=== PATIENT | male | born 1985 | race Asian ===

== ENCOUNTER → 2017-05-16 | Outpatient (CLI) | payer OTHER | END | disposition home or self-care (01) | LOC: RADMN 15:38 | PROVIDERS: ATTEND Internal Medicine | DX: R76.11 Nonspecific reaction to tuberculin skin test without active tuberculosis (principal) ==

== ENCOUNTER → 2021-05-21 | Outpatient (CLI) | payer OTHER | END | disposition home or self-care (01) | LOC: RADMN 12:51 | PROVIDERS: ATTEND Internal Medicine | DX: R76.11 Nonspecific reaction to tuberculin skin test without active tuberculosis (principal) | CPT/HCPCS: 71045 ==

== ENCOUNTER 2023-08-29 19:04 | Inpatient (IN) | payer OTHER ==
[~2023-08-29] VITALS: Ht 172.7 cm; Wt 148.5 kg
[2023-08-29 21:14] LABS: BASOPHILS % (AUTO) 0.1 % (0.0-2.0); EOSINOPHILS % (AUTO) 0 % (1.0-6.0); HEMATOCRIT 50.4 % (41-53); HEMOGLOBIN 16.1 g/dL (13.5-17.5); LYMPHOCYTES # (AUTO) 0.9 K/uL (1.0-4.8); LYMPHOCYTES % (AUTO) 13.1 % (22.0-44.0); MEAN CORPUSCULAR HGB CONC 32.1 G/dL (31.0-37.0); MEAN CORPUSCULAR VOLUME 84 fL (80-100); MONOCYTES # (AUTO) 0.4 K/uL (0.1-1.0); MONOCYTES % (AUTO) 5.1 % (2.0-9.0); NEUTROPHILS # (AUTO) 5.8 K/uL (1.8-7.7); NEUTROPHILS % (AUTO) 81.7 % (40.0-70.0); PLATELET COUNT (AUTO) 285 K/uL (150-450); RED BLOOD CELL COUNT(AUTO) 5.98 MIL/uL (4.50-5.90); RED CELL DISTRIBUTION WIDTH 17.4 % (11.5-14.5); WHITE BLOOD COUNT (AUTO) 7.1 K/uL (4.5-11.0)
[2023-08-29 21:35] LABS: COVID AG,FIA SOURCE NASAL SWAB
[2023-08-29 21:35] LABS: B-TYPE NATRIURETIC PEPTIDE 1100 pg/mL (0-100)
[2023-08-29 21:37] LABS: LACTIC ACID 3.7 mmol/L (0.4-2.0)
[2023-08-29 21:49] LABS: TROPONIN I-HIGH SENSITIVITY 286 ng/L (<76)
[2023-08-29 21:50] LABS: INR 3.3 (0.9-1.1); PROTHROMBIN TIME 32.1 SEC (9.4-11.6)
[2023-08-29 21:52] LABS: SARS-COV2 (COVID) ANTIGEN,FIA Negative (Negative)
[2023-08-29 21:55] LABS: ALANINE AMINOTRANSFERASE 42 U/L (12-78); ALKALINE PHOSPHATASE 45 U/L (46-116); ANION GAP 7 mmol/L (8-16); ASPARTATE AMINOTRANSFERASE 82 U/L (15-37); BILIRUBIN,TOTAL 4.5 mg/dL (0.1-1.0); CALCIUM, TOTAL 9.6 mg/dL (8.8-10.5); CARBON DIOXIDE 30 mmol/L (22-29); CHLORIDE 100 mmol/L (98-107); CREATINE KINASE, TOTAL ONLY 313 U/L (39-308); CREATININE 3.03 mg/dL (0.60-1.30); GLOMERULAR FILTR. RATE CALC 24 mL/min (>60); GLUCOSE,RANDOM 80 mg/dL (70-110); SODIUM SERUM 136 mmol/L (136-145); TOTAL PROTEIN, SERUM 7.1 g/dL (6.4-8.2); UREA NITROGEN, BLOOD 47 mg/dL (7-18)
[2023-08-29 21:57] LABS: POTASSIUM 6.3 mmol/L (3.5-5.1)
[2023-08-29] MEDS: ALBUTEROL SULFATE 2.5 MG/0.5 ML NEB SOLUTION NEB ONE (22:38)
[2023-08-29 22:42] VITALS: PULSE 109; RESP 21; O2SAT 100
[2023-08-29 22:45] VITALS: PULSE 110; RESP 21; O2SAT 99
[2023-08-29] MEDS ORDERED: SODIUM CHLORIDE 0.9% IV ONE (22:45)
[2023-08-29] MEDS ORDERED: 0.9% SODIUM CHLORIDE 10 ML SYRINGE IVP PRN (22:45)
[2023-08-29] MEDS: CALCIUM GLUCONATE 100 MG/ML 10 ML IVP ONE (22:46)
[2023-08-29] MEDS: INSULIN REGULAR, HUMAN 100 UNITS/ML IVP ONE (22:47)
[2023-08-29] MEDS: FUROSEMIDE 40 MG/4 ML VIAL IVP ONE (22:48)
[2023-08-29] MEDS: SODIUM BICARBONATE [ADULT] 8.4% 50 MEQ/50 ML SYRINGE IVP ONE (22:48)
[2023-08-29] MEDS: SODIUM ZIRCONIUM CYCLOSILICATE 5 GM POWDER PACKET PO ONE (22:49)
[2023-08-29] MEDS: DEXTROSE 50%-WATER 25 GM/50 ML SYRINGE IVP ONE (22:55)
[2023-08-29] MEDS: ONDANSETRON HCL 4 MG/2 ML VIAL IVP ONE (22:55)
[2023-08-29] MEDS ORDERED: ONDANSETRON HCL 4 MG/2 ML VIAL IVP PRN (23:00)
[2023-08-29 23:17] LABS: D-DIMER 2.55 mg/L FEU (0.00-0.50)
[2023-08-29 23:20] LABS: C-REACTIVE PROTEIN QUANT 14.41 mg/dL (0.00-0.30); LACTATE DEHYDROGENASE 445 U/L (85-227)
[2023-08-30] VITALS (7 sets, daily range): BP systolic 127–149; BP diastolic 75–102; PULSE 104–120; RESP 12–25; TEMP 97.9–98.9; O2SAT 92
[2023-08-30] MEDS: CLINDAMYCIN 600 MG/D5% WATER 50 ML IV ONE (00:16)
[2023-08-30 00:19] LABS: APPEARANCE,URINE HAZY (CLEAR); BILIRUBIN,URINE SMALL (NEGATIVE); COLOR,URINE YELLOW (YELLOW); GLUCOSE, URINE (UA) NEGATIVE (NEGATIVE); KETONES,URINE NEGATIVE (NEGATIVE); LEUKOCYTE ESTERASE ,URINE NEGATIVE (NEGATIVE); NITRATE,URINE NEGATIVE (NEGATIVE); OCCULT BLOOD,URINE NEGATIVE (NEGATIVE); PROTEIN,URINE 100-200,SEE CONFIRM mg/dL (NEGATIVE); SPECIFIC GRAVITIY, URINE 1.013 (1.003-1.030)
[2023-08-30] MEDS: CefTRIAXone 1 GM/DEXTROSE 50 ML IV SCH (00:25)
[2023-08-30 00:30] LABS: SULFOSALICYLIC ACID,URINE 1+ (Negative)
[2023-08-30 00:31] LABS: BACTERIA,URINE None Seen /HPF (None Seen); RBC,URINE None Seen /HPF (0-2); SQUAMOUS EPITHELIAL CELL,UR None Seen /LPF (None Seen); WBC,URINE None Seen /HPF (0-5)
[2023-08-30 00:32] LABS: HYALINE CASTS, URINE 0-2 /LPF (None Seen)
[2023-08-30 00:39] LABS: CALCIUM, TOTAL 9.3 mg/dL (8.8-10.5); CREATININE 3.03 mg/dL (0.60-1.30)
[2023-08-30 00:55] LABS: FERRITIN 197 ng/mL (26-388)
[2023-08-30 01:53] LABS: TROPONIN I-HIGH SENSITIVITY 275 ng/L (<76)
[2023-08-30 02:07] LABS: CREATININE,URINE RANDOM 195.5 mg/dL (30.0-125.0)
[2023-08-30] MEDS ORDERED: BUMETANIDE 0.25 MG/ML 4 ML VIAL ONE (02:28)
[2023-08-30] MEDS: BUMETANIDE 0.25 MG/ML 4 ML VIAL IVP ONE (02:41)
[2023-08-30 05:24] LABS: BASOPHILS % (AUTO) 0.2 % (0.0-2.0); EOSINOPHILS % (AUTO) 0 % (1.0-6.0); HEMATOCRIT 50.9 % (41-53); HEMOGLOBIN 16.1 g/dL (13.5-17.5); LYMPHOCYTES # (AUTO) 0.8 K/uL (1.0-4.8); LYMPHOCYTES % (AUTO) 12.7 % (22.0-44.0); MEAN CORPUSCULAR HEMOGLOBIN 27.1 pg (26.0-34.0); MEAN CORPUSCULAR HGB CONC 31.6 G/dL (31.0-37.0); MEAN CORPUSCULAR VOLUME 86 fL (80-100); MONOCYTES # (AUTO) 0.4 K/uL (0.1-1.0); MONOCYTES % (AUTO) 5.8 % (2.0-9.0); NEUTROPHILS # (AUTO) 5.2 K/uL (1.8-7.7); NEUTROPHILS % (AUTO) 81.3 % (40.0-70.0); PLATELET COUNT (AUTO) 301 K/uL (150-450); RED BLOOD CELL COUNT(AUTO) 5.92 MIL/uL (4.50-5.90); RED CELL DISTRIBUTION WIDTH 17.8 % (11.5-14.5); WHITE BLOOD COUNT (AUTO) 6.5 K/uL (4.5-11.0)
[2023-08-30 05:35] LABS: TROPONIN I-HIGH SENSITIVITY 262 ng/L (<76)
[2023-08-30 06:01] LABS: CALCIUM, TOTAL 9.7 mg/dL (8.8-10.5); CREATININE 2.92 mg/dL (0.60-1.30); POTASSIUM 5.2 mmol/L (3.5-5.1)
[2023-08-30] MEDS: FUROSEMIDE 40 MG/4 ML VIAL IVP SCH (10:36)
[2023-08-30 11:52] LABS: INR 2.8 (0.9-1.1); PROTHROMBIN TIME 27.3 SEC (9.4-11.6)
[2023-08-30 11:59] LABS: TROPONIN I-HIGH SENSITIVITY 152 ng/L (<76)
[2023-08-30] MEDS: SODIUM ZIRCONIUM CYCLOSILICATE 5 GM POWDER PACKET PO SCH (12:32)
[2023-08-30] MEDS: PHYTONADIONE 10 MG/ML VIAL PO SCH (14:13)
[2023-08-30] MEDS ORDERED: OxyCODONE HCL/ACETAMINOPHEN 5-325 MG TABLET PO PRN (16:00)
[2023-08-30 20:35] LABS: ABG BASE EXCESS 4.6 mmol/L (-2.0-3.0); ABG CARBOXYHEMOGLOBIN 1.6 % (0.0-1.5); ABG HCO3 24.6 mmol/L (22.0-26.0); ABG METHEMOGLOBIN 0.3 % (0.0-1.5); ABG OXYGEN CONTENT 20.3 mL/dL (15.0-23.0); ABG OXYGEN SATURATION 91.5 % (95.0-98.0); ABG OXYHEMOGLOBIN 89.8 % (94.0-100.0); ABG PH 7.106 (7.350-7.450); ABG TOTAL HEMOGLOBIN 16.1 G/dL (12.0-18.0); PO2, ARTERIAL BG 66.1 mmHg (92.0-100.0); SOURCE, BLOOD GAS ARTERIAL; TEMPERATURE, FAHRENHEIT, BG 98.6 FAHREN (96.0-98.6)
[2023-08-30 20:36] LABS: ABG PCO2 111 mmHg (35-45); ALLEN TEST, BLOOD GAS Positive; O2 DEVICE,BLOOD GAS CANNULA (ROOM AIR); SITE, BLOOD GAS RT RADIAL
[2023-08-30] MEDS: CHLORHEXIDINE GLUCONATE 2% TOWELETTE [2'S/6'S] TP SCH (21:32)
[2023-08-30] MEDS: DEXTROSE 50%-WATER 25 GM/50 ML SYRINGE IVP ONE (22:39)
[2023-08-30] MEDS: FUROSEMIDE 40 MG/4 ML VIAL IVP ONE (22:40)
[2023-08-30] MEDS: SODIUM POLYSTYRENE SULFONATE 15 GM/60 ML SUSPENSION BOTTLE PO ONE (22:40)
[2023-08-30 23:01] LABS: GLUCOMETER DEV NAME(LOC) ICUN.5; GLUCOSE,POINT OF CARE 163 MG/DL (70-110)
[2023-08-30] MEDS: INSULIN REGULAR, HUMAN 100 UNITS/ML SQ ONE (23:04)
[2023-08-30 23:06] LABS: C.DIFF GDH ANTIGEN, Stool Negative (Negative); C.DIFF TOXINS A&B, Stool Negative (Negative)
[2023-08-31] VITALS (14 sets, daily range): BP systolic 107–149; BP diastolic 65–95; PULSE 89–106; RESP 11–26; TEMP 98.4–100; O2SAT 92–97
[2023-08-31 00:03] LABS: ALCOHOL, URINE DRUG SCREEN NEGATIVE (NEGATIVE); AMPHET/METH SCREEN,URINE NEGATIVE (NEGATIVE); BARBITURATE SCREEN, URINE NEGATIVE (NEGATIVE); BENZODIAZEPINES SCREEN,URINE NEGATIVE (NEGATIVE); CANNABINOID SCREEN,URINE NEGATIVE (NEGATIVE); COCAINE SCREEN,URINE NEGATIVE (NEGATIVE); METHADONE SCREEN, URINE NEGATIVE (NEGATIVE); OPIATE SCREEN,URINE NEGATIVE (NEGATIVE); PHENCYCLIDINE SCREEN,URINE NEGATIVE (NEGATIVE)
[2023-08-31] MEDS ORDERED: SODIUM CHLORIDE 0.9% 250 ML IV ONE (00:56)
[2023-08-31 05:08] LABS: HIV 1-2 SCREEN 4TH GEN W/RFLX Non Reactive (Non Reactive)
[2023-08-31 05:39] LABS: BASOPHILS % (AUTO) 0.2 % (0.0-2.0); EOSINOPHILS % (AUTO) 0.1 % (1.0-6.0); HEMATOCRIT 45.4 % (41-53); HEMOGLOBIN 14.2 g/dL (13.5-17.5); LYMPHOCYTES # (AUTO) 0.7 K/uL (1.0-4.8); MEAN CORPUSCULAR HEMOGLOBIN 26.8 pg (26.0-34.0); MEAN CORPUSCULAR HGB CONC 31.4 G/dL (31.0-37.0); MEAN CORPUSCULAR VOLUME 86 fL (80-100); MONOCYTES # (AUTO) 0.8 K/uL (0.1-1.0); MONOCYTES % (AUTO) 10.5 % (2.0-9.0); NEUTROPHILS % (AUTO) 80.2 % (40.0-70.0); PLATELET COUNT (AUTO) 229 K/uL (150-450); RED CELL DISTRIBUTION WIDTH 17.7 % (11.5-14.5); WHITE BLOOD COUNT (AUTO) 7.5 K/uL (4.5-11.0)
[2023-08-31 06:00] LABS: ALANINE AMINOTRANSFERASE 32 U/L (12-78); ALBUMIN 2.7 g/dL (3.4-5.0); ALKALINE PHOSPHATASE 49 U/L (46-116); ANION GAP 7 mmol/L (8-16); ASPARTATE AMINOTRANSFERASE 39 U/L (15-37); BILIRUBIN,TOTAL 5.1 mg/dL (0.1-1.0); CARBON DIOXIDE 31 mmol/L (22-29); CHLORIDE 100 mmol/L (98-107); CREATININE 3.08 mg/dL (0.60-1.30); GLOMERULAR FILTR. RATE CALC 23 mL/min (>60); GLUCOSE,RANDOM 151 mg/dL (70-110); PHOSPHORUS 5.7 mg/dL (2.5-4.9); POTASSIUM 5.2 mmol/L (3.5-5.1); SODIUM SERUM 138 mmol/L (136-145); TOTAL PROTEIN, SERUM 6.9 g/dL (6.4-8.2); UREA NITROGEN, BLOOD 54 mg/dL (7-18)
[2023-08-31 06:06] LABS: LACTIC ACID 1.5 mmol/L (0.4-2.0)
[2023-08-31 06:09] LABS: TROPONIN I-HIGH SENSITIVITY 108 ng/L (<76)
[2023-08-31 06:36] LABS: HEMOGLOBIN A1C 6.5 % (3.8-5.6)
[2023-08-31 07:07] LABS: COMPLEMENT C3 86 mg/dL (82-167); COMPLEMENT C4 22 mg/dL (12-38)
[2023-08-31 08:07] LABS: HEPATITIS A ANTIBODY IGM Negative (Negative); HEPATITIS B CORE IGM Negative (Negative); HEPATITIS C AB (EIA) Non Reactive (Non Reactive)
[2023-08-31 08:10] LABS: ABG TOTAL HEMOGLOBIN 15.4 G/dL (12.0-18.0); SOURCE, BLOOD GAS ARTERIAL; TEMPERATURE, FAHRENHEIT, BG 98.4 FAHREN (96.0-98.6)
[2023-08-31 08:12] LABS: ABG BASE EXCESS 4.3 mmol/L (-2.0-3.0); ABG CARBOXYHEMOGLOBIN 2.1 % (0.0-1.5); ABG HCO3 26.2 mmol/L (22.0-26.0); ABG METHEMOGLOBIN 0.5 % (0.0-1.5); ABG OXYGEN SATURATION 94.7 % (95.0-98.0); ABG OXYHEMOGLOBIN 92.2 % (94.0-100.0); PO2, ARTERIAL BG 69.7 mmHg (92.0-100.0)
[2023-08-31 08:17] LABS: ABG PCO2 68 mmHg (35-45); ABG PH 7.277 (7.350-7.450); SITE, BLOOD GAS LFT RADIAL
[2023-08-31 08:18] LABS: ABG A-A DIFF O2 137.4 mmHg (10-20.0); ALLEN TEST, BLOOD GAS Positive; O2 DEVICE,BLOOD GAS BIPAP (ROOM AIR); VENT MODE, BG NIPPV (ROOM AIR)
[2023-08-31 08:19] LABS: INSPIRATORY TIME, BG 0.9 SEC; SPONTANEOUS VT, BG 1029 ml
[2023-08-31 13:33] LABS: ABG CARBOXYHEMOGLOBIN 1.5 % (0.0-1.5); ABG HCO3 30.2 mmol/L (22.0-26.0); ABG METHEMOGLOBIN 0.3 % (0.0-1.5); ABG OXYGEN CONTENT 16.7 mL/dL (15.0-23.0); ABG OXYHEMOGLOBIN 79.3 % (94.0-100.0); ABG PH 7.367 (7.350-7.450); SOURCE, BLOOD GAS ARTERIAL; TEMPERATURE, FAHRENHEIT, BG 98.9 FAHREN (96.0-98.6)
[2023-08-31 13:54] LABS: ABG PCO2 61 mmHg (35-45); ALLEN TEST, BLOOD GAS Positive; O2 DEVICE,BLOOD GAS BIPAP (ROOM AIR); SITE, BLOOD GAS LFT RADIAL
[2023-08-31 13:55] LABS: SPONTANEOUS VT, BG 573 ml
[2023-08-31] MEDS: FUROSEMIDE 40 MG/4 ML VIAL IVP SCH (15:43)
[2023-08-31] MEDS: METOLAZONE 2.5 MG TABLET PO ONE (15:43)
[2023-08-31] MEDS: DOXYCYCLINE HYCLATE 100 MG in DEXTROSE 5%-WATER 100 ML IV SCH (17:11)
[2023-09-01] VITALS (14 sets, daily range): BP systolic 97–148; BP diastolic 39–97; PULSE 89–103; RESP 12–28; TEMP 99–99.9; O2SAT 93–98
[2023-09-01 05:41] LABS: ALBUMIN 2.2 g/dL (3.4-5.0); BILIRUBIN,TOTAL 4.9 mg/dL (0.1-1.0); CALCIUM, TOTAL 8.6 mg/dL (8.8-10.5); CREATININE 2.8 mg/dL (0.60-1.30); POTASSIUM 3.6 mmol/L (3.5-5.1); TOTAL PROTEIN, SERUM 6.3 g/dL (6.4-8.2)
[2023-09-01] MEDS: METOLAZONE 5 MG TABLET PO ONE (10:56)
[2023-09-01 11:11] LABS: PO2, ARTERIAL BG 40.8 mmHg (92.0-100.0)
[2023-09-01 11:14] LABS: ABG OXYGEN SATURATION 80.8 % (95.0-98.0)
[2023-09-02] VITALS (9 sets, daily range): BP systolic 126–143; BP diastolic 63–102; PULSE 86–105; RESP 7–25; TEMP 98.5–100.1; O2SAT 94–97
[2023-09-02 05:35] LABS: BASOPHILS % (AUTO) 0.4 % (0.0-2.0); EOSINOPHILS % (AUTO) 2.3 % (1.0-6.0); HEMATOCRIT 45.7 % (41-53); HEMOGLOBIN 14.6 g/dL (13.5-17.5); LYMPHOCYTES # (AUTO) 0.8 K/uL (1.0-4.8); LYMPHOCYTES % (AUTO) 11.4 % (22.0-44.0); MEAN CORPUSCULAR HEMOGLOBIN 26.7 pg (26.0-34.0); MEAN CORPUSCULAR VOLUME 83 fL (80-100); MONOCYTES % (AUTO) 14.1 % (2.0-9.0); NEUTROPHILS # (AUTO) 5.2 K/uL (1.8-7.7); NEUTROPHILS % (AUTO) 71.8 % (40.0-70.0); PLATELET COUNT (AUTO) 181 K/uL (150-450); RED BLOOD CELL COUNT(AUTO) 5.49 MIL/uL (4.50-5.90); RED CELL DISTRIBUTION WIDTH 17.1 % (11.5-14.5); WHITE BLOOD COUNT (AUTO) 7.2 K/uL (4.5-11.0)
[2023-09-02 05:53] LABS: INR 1.5 (0.9-1.1); PROTHROMBIN TIME 14.9 SEC (9.4-11.6)
[2023-09-02 05:59] LABS: ALBUMIN 2.2 g/dL (3.4-5.0); BILIRUBIN,TOTAL 4.9 mg/dL (0.1-1.0); CREATININE 2.19 mg/dL (0.60-1.30); TOTAL PROTEIN, SERUM 6.6 g/dL (6.4-8.2)
[2023-09-02 06:03] LABS: POTASSIUM 2.9 mmol/L (3.5-5.1)
[2023-09-02] MEDS: POTASSIUM CHLORIDE 20 MEQ ER TABLET PO ONE ×2 (08:12→20:07)
[2023-09-02 11:57] LABS: POTASSIUM 3.3 mmol/L (3.5-5.1)
[2023-09-02 13:00] LABS: BILIRUBIN,DIRECT 3.9 mg/dL (0.00-0.20); BILIRUBIN,TOTAL 4.9 mg/dL (0.1-1.0)
[2023-09-02 13:13] LABS: % IRON SATURATION 15.8 % (30-44)
[2023-09-02] MEDS: POTASSIUM CHLORIDE 10 MEQ ER TABLET PO ONE (13:22)
[2023-09-02 18:09] LABS: CALCIUM, TOTAL 8.9 mg/dL (8.8-10.5); CREATININE 1.91 mg/dL (0.60-1.30); MAGNESIUM 1.6 mg/dL (1.80-2.40); PHOSPHORUS 3.1 mg/dL (2.5-4.9); POTASSIUM 3.2 mmol/L (3.5-5.1)
[2023-09-02 21:06] LABS: DRVVT CONFIRMATION-LUPUS 1.1 ratio (0.8-1.2); DRVVT-LUPUS ANTICOAGULANT 61.7 sec (0.0-47.0); PT-LUPUS ANTICOAGULANT 28.5 sec (9.1-12.0); PTT 36.1 sec (22.9-30.2)
[2023-09-03] VITALS (10 sets, daily range): BP systolic 123–149; BP diastolic 86–108; PULSE 88–104; RESP 12–28; TEMP 99.2–100.1; O2SAT 95–98
[2023-09-03 05:14] LABS: HEMATOCRIT 46.4 % (41-53)
[2023-09-03 05:19] LABS: HEMOGLOBIN 14.9 g/dL (13.5-17.5); MEAN CORPUSCULAR HEMOGLOBIN 26.8 pg (26.0-34.0); MEAN CORPUSCULAR HGB CONC 32.2 G/dL (31.0-37.0); MEAN CORPUSCULAR VOLUME 83 fL (80-100); PLATELET COUNT (AUTO) 175 K/uL (150-450); RED BLOOD CELL COUNT(AUTO) 5.57 MIL/uL (4.50-5.90); RED CELL DISTRIBUTION WIDTH 16.6 % (11.5-14.5); WHITE BLOOD COUNT (AUTO) 6.3 K/uL (4.5-11.0)
[2023-09-03 05:24] LABS: CALCIUM, TOTAL 9.2 mg/dL (8.8-10.5); CREATININE 1.58 mg/dL (0.60-1.30); POTASSIUM 3.2 mmol/L (3.5-5.1)
[2023-09-03 07:17] LABS: BAND NEUTROPHILS % (MANUAL) 7 % (0-5); LYMPHOCYTES % (MANUAL) 29 % (22-44); MONOCYTES % (MANUAL) 3 % (2-9); SEGMENTED NEUTROPHILS % 61 % (40-70); TOTAL CELLS COUNTED 100
[2023-09-03 07:18] LABS: RBC MORPHOLOGY COMMENT NORMAL RBC MORPH
[2023-09-03] MEDS: POTASSIUM CHL 10 MEQ/WATER 50 ML IV SCH (08:00)
[2023-09-03] MEDS: MAGNESIUM SULFATE 1 GM in DEXTROSE 5%-WATER 50 ML IV ONE (08:28)
[2023-09-03] MEDS: POTASSIUM CHLORIDE 10% 40 MEQ/30 ML LIQUID UDCUP PO SCH (12:13)
[2023-09-03] MEDS: DAPTOMYCIN 500 MG in SODIUM CHLORIDE 0.9% 50 ML IV SCH (12:13)
[2023-09-03 13:07] LABS: HAPTOGLOBIN 171 mg/dL (17-317)
[2023-09-03] MEDS: ACETAMINOPHEN 325 MG TABLET PO PRN (16:12)
[2023-09-03 18:55] LABS: MAGNESIUM 1.8 mg/dL (1.80-2.40); POTASSIUM 3.8 mmol/L (3.5-5.1)
[2023-09-04] VITALS (9 sets, daily range): BP systolic 123–149; BP diastolic 85–111; PULSE 88–109; RESP 13–28; TEMP 98.2–99.7; O2SAT 95–99
[2023-09-04] MEDS ORDERED: SODIUM CHLORIDE 0.9% 250 ML IV ONE (00:42)
[2023-09-04 05:47] LABS: HEMATOCRIT 48.1 % (41-53); HEMOGLOBIN 15.3 g/dL (13.5-17.5); MEAN CORPUSCULAR HEMOGLOBIN 26.6 pg (26.0-34.0); MEAN CORPUSCULAR HGB CONC 31.9 G/dL (31.0-37.0); MEAN CORPUSCULAR VOLUME 83 fL (80-100); PLATELET COUNT (AUTO) 152 K/uL (150-450); RED BLOOD CELL COUNT(AUTO) 5.78 MIL/uL (4.50-5.90)
[2023-09-04 06:05] LABS: ALBUMIN 2.2 g/dL (3.4-5.0); BILIRUBIN,TOTAL 4.1 mg/dL (0.1-1.0); CALCIUM, TOTAL 8.9 mg/dL (8.8-10.5); CREATININE 1.35 mg/dL (0.60-1.30); MAGNESIUM 1.8 mg/dL (1.80-2.40); POTASSIUM 3.5 mmol/L (3.5-5.1); TOTAL PROTEIN, SERUM 6.9 g/dL (6.4-8.2)
[2023-09-04 08:34] LABS: BAND NEUTROPHILS % (MANUAL) 1 % (0-5); LYMPHOCYTES % (MANUAL) 37 % (22-44); MONOCYTES % (MANUAL) 2 % (2-9); RBC MORPHOLOGY COMMENT NORMAL RBC MORPH; SEGMENTED NEUTROPHILS % 60 % (40-70); TOTAL CELLS COUNTED 100
[2023-09-04] MEDS: ACYCLOVIR 200 MG CAPSULE PO SCH (16:14)
[2023-09-05] VITALS (7 sets, daily range): BP systolic 114–161; BP diastolic 81–107; PULSE 85–103; RESP 20–27; TEMP 98.2–99.6; O2SAT 95–98
[2023-09-05 06:00] LABS: BASOPHILS % (AUTO) 0.6 % (0.0-2.0); EOSINOPHILS % (AUTO) 6.8 % (1.0-6.0); HEMATOCRIT 47.3 % (41-53); HEMOGLOBIN 15.1 g/dL (13.5-17.5); LYMPHOCYTES # (AUTO) 1.1 K/uL (1.0-4.8); LYMPHOCYTES % (AUTO) 21.3 % (22.0-44.0); MEAN CORPUSCULAR HEMOGLOBIN 26.9 pg (26.0-34.0); MEAN CORPUSCULAR VOLUME 84 fL (80-100); MONOCYTES # (AUTO) 0.9 K/uL (0.1-1.0); MONOCYTES % (AUTO) 16.8 % (2.0-9.0); NEUTROPHILS # (AUTO) 2.9 K/uL (1.8-7.7); NEUTROPHILS % (AUTO) 54.5 % (40.0-70.0); PLATELET COUNT (AUTO) 163 K/uL (150-450); RED BLOOD CELL COUNT(AUTO) 5.62 MIL/uL (4.50-5.90); RED CELL DISTRIBUTION WIDTH 16.9 % (11.5-14.5); WHITE BLOOD COUNT (AUTO) 5.4 K/uL (4.5-11.0)
[2023-09-05 06:15] LABS: ALANINE AMINOTRANSFERASE 20 U/L (12-78); ALBUMIN 2.1 g/dL (3.4-5.0); ALKALINE PHOSPHATASE 57 U/L (46-116); ANION GAP 1 mmol/L (8-16); ASPARTATE AMINOTRANSFERASE 26 U/L (15-37); BILIRUBIN,TOTAL 2.8 mg/dL (0.1-1.0); CALCIUM, TOTAL 8.9 mg/dL (8.8-10.5); CHLORIDE 97 mmol/L (98-107); GLOMERULAR FILTR. RATE CALC > 60 mL/min (>60); GLUCOSE,RANDOM 108 mg/dL (70-110); POTASSIUM 3.4 mmol/L (3.5-5.1); SODIUM SERUM 139 mmol/L (136-145); TOTAL PROTEIN, SERUM 6.9 g/dL (6.4-8.2); UREA NITROGEN, BLOOD 33 mg/dL (7-18)
[2023-09-05 06:22] LABS: CARBON DIOXIDE 41 mmol/L (22-29)
[2023-09-05 14:06] LABS: HEPATITIS A ANTIBODY IGM Negative (Negative); HEPATITIS B CORE IGM Negative (Negative); HEPATITIS C AB (EIA) Non Reactive (Non Reactive)
[2023-09-05 17:06] LABS: LEGIONELLA PNEUMO AG URINE Negative (Negative)
[2023-09-05 18:06] LABS: S PNEUMO SOURCE Urine; STREP PNEUMONIAE AG URINE Negative (Negative)
[2023-09-05] MEDS: LACTULOSE 20 GM/30 ML SOLUTION UDCUP PO PRN (20:51)
[2023-09-05 22:21] LABS: GLUCOMETER DEV NAME(LOC) ICU.S6; GLUCOSE,POINT OF CARE 172 MG/DL (70-110)
[2023-09-05] MEDS ORDERED: DEXTROSE 50%-WATER 25 GM/50 ML SYRINGE IVP PRN (22:45)
[2023-09-05] MEDS: INSULIN LISPRO 100 UNITS/ML SQ PRN (22:53)
[2023-09-06] VITALS (8 sets, daily range): BP systolic 124–152; BP diastolic 97–113; PULSE 91–109; RESP 19–24; TEMP 97.6–98.3; O2SAT 95–99
[2023-09-06] MEDS ORDERED: SODIUM CHLORIDE 0.9% 500 ML IV ONE (00:57)
[2023-09-06 06:18] LABS: ALANINE AMINOTRANSFERASE 22 U/L (12-78); ALBUMIN 2.1 g/dL (3.4-5.0); ALKALINE PHOSPHATASE 60 U/L (46-116); ANION GAP 2 mmol/L (8-16); ASPARTATE AMINOTRANSFERASE 30 U/L (15-37); BILIRUBIN,TOTAL 2.6 mg/dL (0.1-1.0); CALCIUM, TOTAL 9.1 mg/dL (8.8-10.5); CHLORIDE 96 mmol/L (98-107); CREATININE 1.05 mg/dL (0.60-1.30); GLOMERULAR FILTR. RATE CALC > 60 mL/min (>60); GLUCOSE,RANDOM 102 mg/dL (70-110); SODIUM SERUM 139 mmol/L (136-145); TOTAL PROTEIN, SERUM 6.9 g/dL (6.4-8.2); UREA NITROGEN, BLOOD 28 mg/dL (7-18)
[2023-09-06 07:06] LABS: CARBON DIOXIDE 41 mmol/L (22-29)
[2023-09-06] MEDS: POTASSIUM CHLORIDE 10% 40 MEQ/30 ML LIQUID UDCUP PO ONE (11:14)
[2023-09-06] MEDS ORDERED: HydrALAZINE HCL 20 MG/ML VIAL IVP PRN (18:15)
[2023-09-06] MEDS: AmLODIPine BESYLATE 10 MG TABLET PO ONE (18:45)
[2023-09-07] VITALS (9 sets, daily range): BP systolic 128–141; BP diastolic 82–100; PULSE 65–114; RESP 18–29; TEMP 96.5–98.1; O2SAT 89–98
[2023-09-07 00:13] LABS: GLUCOMETER DEV NAME(LOC) 5S.2C; GLUCOSE,POINT OF CARE 99 MG/DL (70-110)
[2023-09-07 00:13] LABS: GLUCOMETER DEV NAME(LOC) 5S.2C; GLUCOSE,POINT OF CARE 107 MG/DL (70-110)
[2023-09-07 07:32] LABS: ALANINE AMINOTRANSFERASE 23 U/L (12-78); ALBUMIN 2.4 g/dL (3.4-5.0); ALKALINE PHOSPHATASE 65 U/L (46-116); ANION GAP 4 mmol/L (8-16); ASPARTATE AMINOTRANSFERASE 29 U/L (15-37); BILIRUBIN,TOTAL 2.7 mg/dL (0.1-1.0); CARBON DIOXIDE 40 mmol/L (22-29); CHLORIDE 95 mmol/L (98-107); CREATININE 0.97 mg/dL (0.60-1.30); GLOMERULAR FILTR. RATE CALC > 60 mL/min (>60); GLUCOSE,RANDOM 97 mg/dL (70-110); POTASSIUM 3.3 mmol/L (3.5-5.1); SODIUM SERUM 139 mmol/L (136-145); TOTAL PROTEIN, SERUM 7.4 g/dL (6.4-8.2); UREA NITROGEN, BLOOD 24 mg/dL (7-18)
[2023-09-07] MEDS: AmLODIPine BESYLATE 10 MG TABLET PO SCH (08:28)
[2023-09-07] MEDS ORDERED: SODIUM CHLORIDE 0.9% 250 ML IV ONE (11:39)
[2023-09-07 12:16] LABS: GLUCOMETER DEV NAME(LOC) 5N.2C; GLUCOSE,POINT OF CARE 101 MG/DL (70-110)
[2023-09-07 12:16] LABS: GLUCOMETER DEV NAME(LOC) 5N.2C; GLUCOSE,POINT OF CARE 123 MG/DL (70-110)
[2023-09-07] MEDS: POTASSIUM CHLORIDE 20 MEQ ER TABLET PO ONE (13:17)
[2023-09-07 17:40] LABS: GLUCOMETER DEV NAME(LOC) 5S.2C; GLUCOSE,POINT OF CARE 123 MG/DL (70-110)
[2023-09-07] MEDS: DOXYCYCLINE HYCLATE 100 MG TABLET PO SCH (21:14)
[2023-09-07] MEDS: CEFUROXIME AXETIL 250 MG TABLET PO SCH (21:14)
[2023-09-08] VITALS (9 sets, daily range): BP systolic 122–148; BP diastolic 85–113; PULSE 92–113; RESP 18–25; TEMP 98–99.1; O2SAT 98–99
[2023-09-08 00:36] LABS: GLUCOMETER DEV NAME(LOC) 5N.2C; GLUCOSE,POINT OF CARE 135 MG/DL (70-110)
[2023-09-08 05:42] LABS: POTASSIUM 3.1 mmol/L (3.5-5.1)
[2023-09-08 08:16] LABS: GLUCOMETER DEV NAME(LOC) 5S.2C; GLUCOSE,POINT OF CARE 94 MG/DL (70-110)
[2023-09-08] MEDS ORDERED: POTASSIUM CHLORIDE 20 MEQ ER TABLET ONE (10:02)
[2023-09-08] MEDS: POTASSIUM CHLORIDE 20 MEQ ER TABLET PO ONE (10:07)
[2023-09-08 11:00] LABS: ANION GAP 5 mmol/L (8-16); CARBON DIOXIDE 38 mmol/L (22-29); CHLORIDE 96 mmol/L (98-107); CREATININE 0.94 mg/dL (0.60-1.30); GLOMERULAR FILTR. RATE CALC > 60 mL/min (>60); GLUCOSE,RANDOM 88 mg/dL (70-110); SODIUM SERUM 139 mmol/L (136-145); UREA NITROGEN, BLOOD 20 mg/dL (7-18)
[2023-09-08 11:57] LABS: GLUCOMETER DEV NAME(LOC) 5N.1C; GLUCOSE,POINT OF CARE 146 MG/DL (70-110)
[2023-09-08 11:57] LABS: GLUCOMETER DEV NAME(LOC) 5N.1C; GLUCOSE,POINT OF CARE 131 MG/DL (70-110)
[2023-09-08 11:58] LABS: GLUCOMETER DEV NAME(LOC) 5N.1C; GLUCOSE,POINT OF CARE 104 MG/DL (70-110)
[2023-09-08 18:06] LABS: C. PNEUMONAIE IGG TITER <1:100 (< 1:100); C. PNEUMONIAE IGM TITER <1:10 (< 1:10); C. PSITTACI IGM TITER <1:10 (< 1:10); C. TRACHOMATIS IGG TITER <1:100 (< 1:100); C. TRACHOMATIS IGM TITER <1:10 (< 1:10)
[2023-09-09] VITALS (9 sets, daily range): BP systolic 123–139; BP diastolic 86–98; PULSE 91–102; RESP 18–24; TEMP 96.9–98.3; O2SAT 93–99
[2023-09-09 00:56] LABS: GLUCOMETER DEV NAME(LOC) 5N.2C; GLUCOSE,POINT OF CARE 129 MG/DL (70-110)
[2023-09-09 00:56] LABS: GLUCOMETER DEV NAME(LOC) 5N.2C; GLUCOSE,POINT OF CARE 143 MG/DL (70-110)
[2023-09-09 06:21] LABS: GLUCOMETER DEV NAME(LOC) 5N.2C; GLUCOSE,POINT OF CARE 97 MG/DL (70-110)
[2023-09-09 06:50] LABS: BASOPHILS % (AUTO) 0.8 % (0.0-2.0); EOSINOPHILS % (AUTO) 3.1 % (1.0-6.0); HEMATOCRIT 42.3 % (41-53); HEMOGLOBIN 13.5 g/dL (13.5-17.5); MEAN CORPUSCULAR HEMOGLOBIN 26.6 pg (26.0-34.0); MEAN CORPUSCULAR HGB CONC 31.8 G/dL (31.0-37.0); MEAN CORPUSCULAR VOLUME 84 fL (80-100); MONOCYTES # (AUTO) 0.7 K/uL (0.1-1.0); MONOCYTES % (AUTO) 9.9 % (2.0-9.0); NEUTROPHILS # (AUTO) 4.9 K/uL (1.8-7.7); NEUTROPHILS % (AUTO) 71.2 % (40.0-70.0); PLATELET COUNT (AUTO) 234 K/uL (150-450); RED BLOOD CELL COUNT(AUTO) 5.07 MIL/uL (4.50-5.90); RED CELL DISTRIBUTION WIDTH 17.3 % (11.5-14.5); WHITE BLOOD COUNT (AUTO) 6.9 K/uL (4.5-11.0)
[2023-09-09 07:03] LABS: ANION GAP 3 mmol/L (8-16); CALCIUM, TOTAL 9.2 mg/dL (8.8-10.5); CARBON DIOXIDE 37 mmol/L (22-29); CHLORIDE 98 mmol/L (98-107); CREATININE 0.94 mg/dL (0.60-1.30); GLOMERULAR FILTR. RATE CALC > 60 mL/min (>60); GLUCOSE,RANDOM 90 mg/dL (70-110); POTASSIUM 3.2 mmol/L (3.5-5.1); SODIUM SERUM 138 mmol/L (136-145); UREA NITROGEN, BLOOD 19 mg/dL (7-18)
[2023-09-09] MEDS: SPIRONOLACTONE 25 MG TABLET PO SCH (08:57)
[2023-09-09] MEDS: FUROSEMIDE 40 MG TABLET PO SCH (08:57)
[2023-09-09 12:10] LABS: GLUCOMETER DEV NAME(LOC) 5S.2C; GLUCOSE,POINT OF CARE 111 MG/DL (70-110)
[2023-09-09] MEDS: POTASSIUM CHLORIDE 20 MEQ ER TABLET PO ONE ×2 (16:39→20:23)
[2023-09-09 18:16] LABS: GLUCOMETER DEV NAME(LOC) 5S.2C; GLUCOSE,POINT OF CARE 106 MG/DL (70-110)
[2023-09-09] MEDS: MAGNESIUM SULFATE 2 GM/WATER 50 ML IV ONE (20:24)
[2023-09-09 22:31] LABS: GLUCOMETER DEV NAME(LOC) 5S.2C; GLUCOSE,POINT OF CARE 123 MG/DL (70-110)
[2023-09-10 01:55] VITALS: PULSE 92; RESP 19; O2SAT 99
[2023-09-10 04:00] VITALS: BP 118/91; PULSE 93; RESP 20; TEMP 97.6
[2023-09-10 04:27] VITALS: PULSE 91; RESP 25; O2SAT 98
[2023-09-10 07:57] LABS: GLUCOMETER DEV NAME(LOC) 5N.1C; GLUCOSE,POINT OF CARE 90 MG/DL (70-110)
[2023-09-10 08:01] LABS: ANION GAP 2 mmol/L (8-16); CARBON DIOXIDE 38 mmol/L (22-29); CHLORIDE 99 mmol/L (98-107); CREATININE 0.91 mg/dL (0.60-1.30); GLOMERULAR FILTR. RATE CALC > 60 mL/min (>60); GLUCOSE,RANDOM 90 mg/dL (70-110); POTASSIUM 3.6 mmol/L (3.5-5.1); SODIUM SERUM 139 mmol/L (136-145); UREA NITROGEN, BLOOD 18 mg/dL (7-18)
[2023-09-10 08:21] VITALS: BP 149/96; PULSE 90; RESP 20; TEMP 97.9
[2023-09-10] MEDS: HYDROCODONE/ACETAMINOPHEN 10-325 MG TABLET PO PRN (09:06)
[2023-09-10 11:59] VITALS: BP 144/89; PULSE 92; RESP 18
[2023-09-10] MEDS ORDERED: FURO40 PO (13:01)
[2023-09-10] MEDS ORDERED: SPIR-37 PO (13:01)
[2023-09-10] MEDS ORDERED: ACYC200C24 PO (13:01)
[2023-09-10] MEDS ORDERED: DOXY-354 PO (13:01)
[2023-09-10] MEDS ORDERED: AMLO-258 PO (13:01)
[2023-09-10] MEDS ORDERED: CEFU250T87 PO (13:01)
[2023-09-10 16:17] VITALS: BP 142/85; PULSE 104; RESP 20; TEMP 97.6
[2023-09-10 18:26] LABS: GLUCOMETER DEV NAME(LOC) 5S.1B; GLUCOSE,POINT OF CARE 116 MG/DL (70-110)
== END 2023-09-10 18:45 | disposition home or self-care (01) | DRG 193 ==
LOC: EMS 19:04 → ICU 22:55 → 5S 09-05 23:00 → 5N 09-06 22:16
PROVIDERS: ADMIT Internal Medicine; ATTEND Internal Medicine
PROC: 5A09357 Assistance with Respiratory Ventilation, Less than 24 Consecutive Hours, Continuous Positive Airway Pressure (ICD-10-PCS; principal; 2023-08-30)
PROC: 5A09357 Assistance with Respiratory Ventilation, Less than 24 Consecutive Hours, Continuous Positive Airway Pressure (ICD-10-PCS; 2023-08-31)
PROC: 5A09357 Assistance with Respiratory Ventilation, Less than 24 Consecutive Hours, Continuous Positive Airway Pressure (ICD-10-PCS; 2023-09-01)
PROC: 5A09357 Assistance with Respiratory Ventilation, Less than 24 Consecutive Hours, Continuous Positive Airway Pressure (ICD-10-PCS; 2023-09-02)
PROC: 5A09357 Assistance with Respiratory Ventilation, Less than 24 Consecutive Hours, Continuous Positive Airway Pressure (ICD-10-PCS; 2023-09-03)
PROC: 05HB33Z Insertion of Infusion Device into Right Basilic Vein, Percutaneous Approach (ICD-10-PCS; 2023-09-03)
PROC: B54MZZA Ultrasonography of Right Upper Extremity Veins, Guidance (ICD-10-PCS; 2023-09-03)
PROC: 5A09357 Assistance with Respiratory Ventilation, Less than 24 Consecutive Hours, Continuous Positive Airway Pressure (ICD-10-PCS; 2023-09-04)
PROC: 5A09357 Assistance with Respiratory Ventilation, Less than 24 Consecutive Hours, Continuous Positive Airway Pressure (ICD-10-PCS; 2023-09-05)
PROC: 5A09357 Assistance with Respiratory Ventilation, Less than 24 Consecutive Hours, Continuous Positive Airway Pressure (ICD-10-PCS; 2023-09-06)
PROC: 5A09357 Assistance with Respiratory Ventilation, Less than 24 Consecutive Hours, Continuous Positive Airway Pressure (ICD-10-PCS; 2023-09-07)
PROC: 5A09357 Assistance with Respiratory Ventilation, Less than 24 Consecutive Hours, Continuous Positive Airway Pressure (ICD-10-PCS; 2023-09-08)
PROC: 5A09357 Assistance with Respiratory Ventilation, Less than 24 Consecutive Hours, Continuous Positive Airway Pressure (ICD-10-PCS; 2023-09-09)
PROC: 5A09357 Assistance with Respiratory Ventilation, Less than 24 Consecutive Hours, Continuous Positive Airway Pressure (ICD-10-PCS; 2023-09-10)
DX: J18.9 Pneumonia, unspecified organism (principal); G93.41 Metabolic encephalopathy; I50.23 Acute on chronic systolic (congestive) heart failure; J96.01 Acute respiratory failure with hypoxia; K72.00 Acute and subacute hepatic failure without coma; J96.02 Acute respiratory failure with hypercapnia; N17.9 Acute kidney failure, unspecified; I42.9 Cardiomyopathy, unspecified; E87.20 Acidosis, unspecified; E66.2 Morbid (severe) obesity with alveolar hypoventilation; J98.11 Atelectasis; R18.8 Other ascites; Z68.43 Body mass index [BMI] 50.0-59.9, adult; N18.4 Chronic kidney disease, stage 4 (severe); Z20.822 Contact with and (suspected) exposure to COVID-19; E87.5 Hyperkalemia; E87.6 Hypokalemia
CPT/HCPCS: 36245; 36569; 36600; 71045; 71250; 72192; 74150; 76700; 76770; 76937; 80048; 80053; 80074; 80307; 81001; 81002; 82043; 82140; 82247; 82248; 82390; 82550; 82570; 82728; 82805; 82962; 83010; 83036; 83540; 83550; 83605; 83615; 83735; 83880; 84100; 84132; 84145; 84156; 84300; 84460; 84484; 85025; 85379; 85384; 85598; 85610; 85613; 85651; 85730; 85732; 86038; 86140; 86160; 86225; 86256; 86592; 86631; 86632; 86635; 86707; 86709; 86738; 86850; 86900; 86901; 87040; 87081; 87324; 87350; 87389; 87449; 87517; 87899; 93005; 93306; 93970; 94640; 94660; 97110; 97116; 97162; 97530; 99291; J0610; J0696; J0878; J1815; J1940; J2405; J3430; J3475; J3480; J3490; J7040; J7050; J7060; Q9967; 36415-L1; 36415-TC; 85597-TC; J7613

== ENCOUNTER → 2023-09-14 | Outpatient (CLI) | payer OTHER ==
[~2023-09-14] MED LIST: ACYC200C24 PO; AMLO-258 PO; CEFU250T87 PO; DOXY-354 PO; FURO40 PO; SPIR-37 PO
[2023-09-14 09:29] LABS: EOSINOPHILS % (AUTO) 3.1 % (1.0-6.0); HEMATOCRIT 43.8 % (41-53); HEMOGLOBIN 13.9 g/dL (13.5-17.5); LYMPHOCYTES # (AUTO) 1.3 K/uL (1.0-4.8); LYMPHOCYTES % (AUTO) 20.4 % (22.0-44.0); MEAN CORPUSCULAR HEMOGLOBIN 26.4 pg (26.0-34.0); MEAN CORPUSCULAR HGB CONC 31.7 G/dL (31.0-37.0); MEAN CORPUSCULAR VOLUME 83 fL (80-100); MONOCYTES # (AUTO) 0.8 K/uL (0.1-1.0); MONOCYTES % (AUTO) 12.4 % (2.0-9.0); NEUTROPHILS % (AUTO) 63.1 % (40.0-70.0); PLATELET COUNT (AUTO) 317 K/uL (150-450); RED BLOOD CELL COUNT(AUTO) 5.26 MIL/uL (4.50-5.90); RED CELL DISTRIBUTION WIDTH 17.3 % (11.5-14.5); WHITE BLOOD COUNT (AUTO) 6.3 K/uL (4.5-11.0)
[2023-09-14 09:35] LABS: HEMOGLOBIN A1C 6.4 % (3.8-5.6)
[2023-09-14 09:43] LABS: ALANINE AMINOTRANSFERASE 26 U/L (12-78); ALBUMIN 2.9 g/dL (3.4-5.0); ALKALINE PHOSPHATASE 82 U/L (46-116); ANION GAP 4 mmol/L (8-16); ASPARTATE AMINOTRANSFERASE 23 U/L (15-37); BILIRUBIN,TOTAL 2.3 mg/dL (0.1-1.0); CALCIUM, TOTAL 9.5 mg/dL (8.8-10.5); CARBON DIOXIDE 32 mmol/L (22-29); CHLORIDE 98 mmol/L (98-107); CHOL/HDL RATIO 3.3 (4.2-7.3); CHOLESTEROL 107 mg/dL (131-200); CREATININE 0.98 mg/dL (0.60-1.30); GLOMERULAR FILTR. RATE CALC > 60 mL/min (>60); GLUCOSE,RANDOM 97 mg/dL (70-110); HDL CHOLESTEROL 32 mg/dL (40-60); LDL CHOL (CALC.) 60 mg/dL (0-130); POTASSIUM 3.9 mmol/L (3.5-5.1); SODIUM SERUM 134 mmol/L (136-145); TOTAL PROTEIN, SERUM 8.1 g/dL (6.4-8.2); TRIGLYCERIDES 73 mg/dL (15-150); UREA NITROGEN, BLOOD 15 mg/dL (7-18)
[2023-09-14 11:12] LABS: VITAMIN B12 LEVEL 1270 pg/mL (211-911)
[2023-09-14 11:17] LABS: FOLATE SERUM 13.1 ng/mL (5.4-); VITAMIN D,TOTAL (25-0H) < 5 ng/mL (30-100)
[2023-09-15 08:07] LABS: CREATININE, URINE (mALB) 104.8 mg/dL (Not Estab.)
== END | disposition home or self-care (01) ==
LOC: LABMN 08:58
PROVIDERS: ATTEND Internal Medicine Geriatric Medicine
DX: Z00.00 Encounter for general adult medical examination without abnormal findings (principal)
CPT/HCPCS: 80053; 80061; 82043; 82306; 82570; 82607; 82746; 83036; 85025

== ENCOUNTER → 2023-10-13 | Outpatient (CLI) | payer OTHER ==
[~2023-10-13] VITALS: Ht 170.2 cm; Wt 110.0 kg
[~2023-10-13] MED LIST changes: +ATOR10TA PO
[2023-10-13 09:07] VITALS: BP 125/74; PULSE 90; RESP 16; TEMP 97.8; O2SAT 100
== END | disposition home or self-care (01) ==
LOC: SRCNTR 08:54
PROVIDERS: ATTEND Internal Medicine
DX: J96.00 Acute respiratory failure, unspecified whether with hypoxia or hypercapnia (principal); E80.6 Other disorders of bilirubin metabolism; I50.9 Heart failure, unspecified; G47.33 Obstructive sleep apnea (adult) (pediatric); Z79.899 Other long term (current) drug therapy; Z88.8 Allergy status to other drugs, medicaments and biological substances
CPT/HCPCS: G0463; Z7500

== ENCOUNTER → 2023-11-01 | Outpatient (CLI) | payer OTHER ==
[~2023-11-01] VITALS: Ht 170.2 cm; Wt 109.0 kg
[~2023-11-01] MED LIST changes: +LOSA-381 PO; +SEMA0.258 SQ.
[2023-11-01 15:11] VITALS: BP 137/83; PULSE 87; RESP 18; TEMP 98.5; O2SAT 99
== END | disposition still patient (30) ==
LOC: SRCNTR 14:47 → EDSTATUS 15:00
PROVIDERS: ATTEND Internal Medicine
DX: I50.22 Chronic systolic (congestive) heart failure (principal); E66.01 Morbid (severe) obesity due to excess calories; R80.9 Proteinuria, unspecified; Z79.899 Other long term (current) drug therapy
CPT/HCPCS: G0463; Z7500

== ENCOUNTER → 2024-01-12 | Outpatient (CLI) | payer OTHER ==
[~2024-01-12] MED LIST changes: -ACYC200C24 PO; -AMLO-258 PO; -CEFU250T87 PO; -DOXY-354 PO
[2024-01-12 10:16] LABS: BASOPHILS % (AUTO) 0.7 % (0.0-2.0); EOSINOPHILS % (AUTO) 3.3 % (1.0-6.0); HEMATOCRIT 40.7 % (41-53); HEMOGLOBIN 13.6 g/dL (13.5-17.5); LYMPHOCYTES # (AUTO) 2.4 K/uL (1.0-4.8); LYMPHOCYTES % (AUTO) 36.2 % (22.0-44.0); MEAN CORPUSCULAR HEMOGLOBIN 28.1 pg (26.0-34.0); MEAN CORPUSCULAR HGB CONC 33.5 G/dL (31.0-37.0); MEAN CORPUSCULAR VOLUME 84 fL (80-100); MONOCYTES # (AUTO) 0.5 K/uL (0.1-1.0); MONOCYTES % (AUTO) 8.1 % (2.0-9.0); NEUTROPHILS # (AUTO) 3.5 K/uL (1.8-7.7); NEUTROPHILS % (AUTO) 51.7 % (40.0-70.0); PLATELET COUNT (AUTO) 304 K/uL (150-450); RED BLOOD CELL COUNT(AUTO) 4.84 MIL/uL (4.50-5.90); RED CELL DISTRIBUTION WIDTH 13.7 % (11.5-14.5); WHITE BLOOD COUNT (AUTO) 6.7 K/uL (4.5-11.0)
[2024-01-12 10:28] LABS: APPEARANCE,URINE CLEAR (CLEAR); BILIRUBIN,URINE NEGATIVE (NEGATIVE); COLOR,URINE YELLOW (YELLOW); GLUCOSE, URINE (UA) NEGATIVE (NEGATIVE); KETONES,URINE NEGATIVE (NEGATIVE); LEUKOCYTE ESTERASE ,URINE NEGATIVE (NEGATIVE); NITRATE,URINE NEGATIVE (NEGATIVE); OCCULT BLOOD,URINE NEGATIVE (NEGATIVE); PH,URINE 5.5 (5.0-8.0); PROTEIN,URINE 30-70 mg/dL (NEGATIVE); SPECIFIC GRAVITIY, URINE 1.027 (1.003-1.030); UROBILINOGEN,URINE <=1.0 mg/dL (<=1.0)
[2024-01-12 10:29] LABS: HEMOGLOBIN A1C 5.6 % (3.8-5.6)
[2024-01-12 10:30] LABS: PROTEIN,URINE RANDOM 39 mg/dL (0-11.9)
[2024-01-12 10:31] LABS: ALANINE AMINOTRANSFERASE 41 U/L (12-78); ALBUMIN 3.7 g/dL (3.4-5.0); ALKALINE PHOSPHATASE 57 U/L (46-116); ANION GAP 4 mmol/L (8-16); ASPARTATE AMINOTRANSFERASE 19 U/L (15-37); BILIRUBIN,TOTAL 0.9 mg/dL (0.1-1.0); CARBON DIOXIDE 31 mmol/L (22-29); CHLORIDE 101 mmol/L (98-107); CHOL/HDL RATIO 1.8 (4.2-7.3); CHOLESTEROL 88 mg/dL (131-200); CREATININE 1.21 mg/dL (0.60-1.30); GLOMERULAR FILTR. RATE CALC > 60 mL/min (>60); GLUCOSE,RANDOM 89 mg/dL (70-110); HDL CHOLESTEROL 48 mg/dL (40-60); LDL CHOL (CALC.) 34 mg/dL (0-130); PHOSPHORUS 3.5 mg/dL (2.5-4.9); POTASSIUM 3.9 mmol/L (3.5-5.1); SODIUM SERUM 136 mmol/L (136-145); TOTAL PROTEIN, SERUM 8.1 g/dL (6.4-8.2); TRIGLYCERIDES 30 mg/dL (15-150); UREA NITROGEN, BLOOD 22 mg/dL (7-18)
[2024-01-13 09:07] LABS: CREATININE, URINE (mALB) 231.1 mg/dL (Not Estab.)
== END | disposition home or self-care (01) ==
LOC: LABMN 09:28
PROVIDERS: ATTEND Internal Medicine Nephrology
DX: I13.0 Hypertensive heart and chronic kidney disease with heart failure and stage 1 through stage 4 chronic kidney disease, or unspecified chronic kidney disease (principal); E11.22 Type 2 diabetes mellitus with diabetic chronic kidney disease; E11.59 Type 2 diabetes mellitus with other circulatory complications; I50.9 Heart failure, unspecified; N18.9 Chronic kidney disease, unspecified; E78.49 Other hyperlipidemia; Z87.448 Personal history of other diseases of urinary system
CPT/HCPCS: 80053; 80061; 80069; 81003; 82043; 82570; 83036; 83735; 84156; 85025